=== PATIENT | male | born 1990 | race Caucasian/White ===

== ENCOUNTER → 2016-10-18 | Outpatient (CLI) | payer BC | LOC: RAD 08:55 | DX: M25.511 Pain in right shoulder (principal); W10.9XXA Fall (on) (from) unspecified stairs and steps, initial encounter ==

== ENCOUNTER 2016-11-06 11:00 | Outpatient (RCR) | payer BC | END 2017-01-23 | disposition home or self-care (01) | LOC: PT | DX: M75.21 Bicipital tendinitis, right shoulder (principal) ==

== ENCOUNTER → 2017-04-05 | Outpatient (CLI) | payer BC ==
[2017-04-05 07:41] LABS: EOS # 0.5 (0.04-0.40); EOS % 4.9 % (0.0-4.0); HEMATOCRIT 42.4 % (42.0-52.0); HEMOGLOBIN 13.9 g/dL (13.5-18.0); LYMPH# 2.3 (1.50-4.00); MEAN CELL VOLUME 84 fl (78-100); MEAN CORPUSCULAR HEMOGLOBIN 28 pg (27-31); MEAN CORPUSCULAR HGB CONC 33 g/dL (33-37); MEAN PLATELET VOLUME 9.6 fl (7.4-10.4); MONO # 0.9 (0.20-0.80); NEU # 7.1 (1.40-6.50); PLATELET COUNT 389 K/mm3 (130-400); RED BLOOD COUNT 5.04 M/mm3 (4.20-5.60); RED CELL DISTRIBUTION WIDTH 14.1 % (11.5-14.5); WHITE BLOOD COUNT 10.9 K/mm3 (4.8-10.8)
[2017-04-05 07:44] LABS: BUN/CREATININE RATIO 18.3 (6.0-26.0); CALCIUM 9.2 mg/dL (8.4-10.2); POTASSIUM 4.2 mmol/L (3.6-5.0); TOTAL BILIRUBIN 0.6 mg/dL (0.2-1.3); TOTAL PROTEIN 7.3 g/dL (6.3-8.2)
== END ==
LOC: LAB 07:18
PROVIDERS: Nurse Practitioner Family
DX: R53.81 Other malaise (principal); R06.83 Snoring; I10 Essential (primary) hypertension

== ENCOUNTER → 2017-04-25 | Outpatient (CLI) | payer BC | LOC: LAB 07:02 | DX: R53.81 Other malaise (principal); E66.01 Morbid (severe) obesity due to excess calories; R06.83 Snoring; I10 Essential (primary) hypertension ==

== ENCOUNTER → 2017-05-11 | Outpatient (CLI) | payer BC | LOC: LAB 07:24 | DX: R53.81 Other malaise (principal); E66.01 Morbid (severe) obesity due to excess calories; R06.83 Snoring; I10 Essential (primary) hypertension ==

== ENCOUNTER → 2017-05-15 | Outpatient (CLI) | payer BC ==
[2017-05-15 23:41] LABS: FOLLICLE STIMULATING HORMONE 1.9 mIU/mL (1.0-12.0); LUTENIZING HORMONE 1.8 mIU/mL (0.6-12.1)
== END ==
LOC: LAB 12:34
PROVIDERS: Nurse Practitioner Family
DX: E29.1 Testicular hypofunction (principal)

== ENCOUNTER → 2017-05-17 | Outpatient (CLI) | payer BC | LOC: LAB 09:48 | DX: E29.1 Testicular hypofunction (principal) ==

== ENCOUNTER → 2017-07-05 | Outpatient (CLI) | payer BC | LOC: LAB 13:03 | DX: E29.1 Testicular hypofunction (principal) ==

== ENCOUNTER → 2017-07-10 | Outpatient (CLI) | payer BC | LOC: LAB 07:13 | DX: E29.1 Testicular hypofunction (principal) ==

== ENCOUNTER 2018-09-17 06:49 | Emergency (ER) | payer BC ==
[~2018-09-17] VITALS: Ht 180.3 cm; Wt 179.5 kg
[2018-09-17] MEDS ORDERED: LISINOPRIL AND1 TA1 PO (07:04)
[2018-09-17 07:38] LABS: HEMATOCRIT 42.5 % (42.0-52.0); HEMOGLOBIN 13.7 g/dL (13.5-18.0); LYMPH# 1.9 (1.50-4.00); MEAN CELL VOLUME 85 fl (78-100); MEAN CORPUSCULAR HEMOGLOBIN 27 pg (27-31); MEAN CORPUSCULAR HGB CONC 32 g/dL (33-37); MEAN PLATELET VOLUME 9.2 fl (7.4-10.4); MONO # 0.7 (0.20-0.80); NEU # 6.2 (1.40-6.50); PLATELET COUNT 349 K/mm3 (130-400); RED BLOOD COUNT 5.02 M/mm3 (4.20-5.60); WHITE BLOOD COUNT 9.6 K/mm3 (4.8-10.8)
[2018-09-17 07:45] LABS: EOS # 0.7 (0.04-0.40); EOS % 7.6 % (0.0-4.0)
[2018-09-17 08:01] LABS: D-DIMER 0.27 mg/L FEU (0.15-0.50)
[2018-09-17 08:09] LABS: ALBUMIN 3.7 g/dL (3.5-5.0); ALT/SGPT 30 U/L (0-55); AST-SGOT 22 U/L (5-34); CALCIUM 9.2 mg/dL (8.3-10.5); CARBON DIOXIDE 27 mmol/L (22-29); GLUCOSE 112 mg/dL (75-110); SODIUM 138 mmol/L (136-145); TOTAL BILIRUBIN 0.4 mg/dL (0.2-1.2); TOTAL PROTEIN 6.7 g/dL (6.4-8.3)
[2018-09-17 08:14] LABS: TROPONIN-I < 0.03 ng/mL (<0.030)
[2018-09-17 09:03] VITALS: BP 151/79
== END 2018-09-17 09:05 | disposition home or self-care (01) ==
LOC: ED 06:49
PROVIDERS: Nurse Practitioner Primary Care
DX: R07.89 Other chest pain (principal); I10 Essential (primary) hypertension; K21.9 Gastro-esophageal reflux disease without esophagitis; E66.9 Obesity, unspecified

== ENCOUNTER → 2019-11-26 | Outpatient (CLI) | payer BC ==
[~2019-11-26] MED LIST: LISINOPRIL AND1 TA1 PO
== END ==
LOC: RAD 07:48
DX: I86.1 Scrotal varices (principal)

== ENCOUNTER → 2020-01-29 | Outpatient (CLI) | payer BC ==
[2020-01-29 08:17] LABS: EOS # 0.5 (0.04-0.40); HEMATOCRIT 45.5 % (42.0-52.0); HEMOGLOBIN 14.5 g/dL (13.5-18.0); LYMPH# 2.2 (1.50-4.00); MEAN CELL VOLUME 84 fl (78-100); MEAN CORPUSCULAR HEMOGLOBIN 27 pg (27-31); MEAN CORPUSCULAR HGB CONC 32 g/dL (33-37); MEAN PLATELET VOLUME 9.5 fl (7.4-10.4); MONO # 0.6 (0.20-0.80); NEU # 5.5 (1.40-6.50); PLATELET COUNT 373 K/mm3 (130-400); RED BLOOD COUNT 5.44 M/mm3 (4.20-5.60); RED CELL DISTRIBUTION WIDTH 13.7 % (11.5-14.5); WHITE BLOOD COUNT 8.7 K/mm3 (4.8-10.8)
[2020-01-29 08:30] LABS: POTASSIUM 4.5 mmol/L (3.5-5.1)
[2020-01-29 08:31] LABS: ALBUMIN 4.1 g/dL (3.5-5.0)
[2020-01-29 08:32] LABS: CALCIUM 9.4 mg/dL (8.3-10.5)
[2020-01-29 08:35] LABS: TOTAL BILIRUBIN 0.5 mg/dL (0.2-1.2)
[2020-01-29 08:51] LABS: EOS % 5.2 % (0.0-4.0)
== END ==
LOC: LAB 08:00
PROVIDERS: Physician Assistant
DX: J30.2 Other seasonal allergic rhinitis (principal); K21.9 Gastro-esophageal reflux disease without esophagitis; I10 Essential (primary) hypertension; M79.642 Pain in left hand; E29.1 Testicular hypofunction; R73.9 Hyperglycemia, unspecified; R45.4 Irritability and anger; R51.9 Headache, unspecified; Z83.3 Family history of diabetes mellitus

== ENCOUNTER → 2020-10-25 | Outpatient (CLI) | payer BC | LOC: LAB 18:03 | DX: U07.1 COVID-19 (principal) ==

== ENCOUNTER → 2021-03-19 | Outpatient (CLI) | payer BC | LOC: LAB 16:58 | DX: Z20.822 Contact with and (suspected) exposure to COVID-19 (principal) ==

== ENCOUNTER 2021-03-30 18:38 | Emergency (ER) | payer BC ==
[2021-03-30] MEDS ORDERED: LYMEPAK100 MG PO (18:49)
[2021-03-30] MEDS ORDERED: GLUCOPHAGE PO (18:50)
[2021-03-30] MEDS ORDERED: FLUTICASON0.05 MG/AC NS (18:50)
[2021-03-30] MEDS ORDERED: ESCITALOPRAM5 MG PO (18:50)
[2021-03-30 20:46] LABS: BASO # 0.03 K/mm3 (0.02-0.10); EOS # 0.37 K/mm3 (0.04-0.40); EOS % 3.8 % (0.0-4.0); HEMATOCRIT 47.5 % (42.0-52.0); HEMOGLOBIN 15.4 g/dL (13.5-18.0); LYMPH# 3.24 K/mm3 (1.50-4.00); MEAN CELL VOLUME 85 fl (78-100); MEAN CORPUSCULAR HEMOGLOBIN 28 pg (27-31); MEAN CORPUSCULAR HGB CONC 32 g/dL (33-37); MONO # 0.71 K/mm3 (0.20-0.80); NEU # 5.48 K/mm3 (1.40-6.50); PLATELET COUNT 370 K/mm3 (130-400); RED CELL DISTRIBUTION WIDTH 13.4 % (11.5-14.5); WHITE BLOOD COUNT 9.8 K/mm3 (4.8-10.8)
[2021-03-30 20:59] LABS: ALBUMIN 4.3 g/dL (3.5-5.0); POTASSIUM 4.2 mmol/L (3.5-5.1)
[2021-03-30 21:00] LABS: CALCIUM 9.8 mg/dL (8.3-10.5)
[2021-03-30 21:02] LABS: TOTAL PROTEIN 8.4 g/dL (6.4-8.3)
[2021-03-30 21:03] LABS: TOTAL BILIRUBIN 0.2 mg/dL (0.2-1.2)
[2021-03-30] MEDS ORDERED: ALBUTEROL2.5 MG/3 M IH (21:18)
[2021-03-30] MEDS ORDERED: CEFDINIR300 MG PO (21:18)
[2021-03-30 21:30] VITALS: BP 156/78
== END 2021-03-30 21:30 | disposition home or self-care (01) ==
LOC: ED 18:38
PROVIDERS: Physician Assistant
DX: J40 Bronchitis, not specified as acute or chronic (principal); H66.92 Otitis media, unspecified, left ear; I10 Essential (primary) hypertension; E11.9 Type 2 diabetes mellitus without complications; F32.A Depression, unspecified; Z20.822 Contact with and (suspected) exposure to COVID-19; Z79.84 Long term (current) use of oral hypoglycemic drugs; Z79.899 Other long term (current) drug therapy

== ENCOUNTER → 2021-07-20 | Outpatient (CLI) | payer BC ==
[~2021-07-20] MED LIST changes: +ALBUTEROL2.5 MG/3 M IH; +CEFDINIR300 MG PO; +ESCITALOPRAM5 MG PO; +FLUTICASON0.05 MG/AC NS; +GLUCOPHAGE PO; +LYMEPAK100 MG PO
[2021-07-20 07:55] LABS: BASO # 0.03 K/mm3 (0.02-0.10); HEMATOCRIT 43.1 % (42.0-52.0); HEMOGLOBIN 13.9 g/dL (13.5-18.0); LYMPH# 1.95 K/mm3 (1.50-4.00); MEAN CELL VOLUME 85 fl (78-100); MEAN CORPUSCULAR HEMOGLOBIN 27 pg (27-31); MEAN CORPUSCULAR HGB CONC 32 g/dL (33-37); MEAN PLATELET VOLUME 9.2 fl (7.4-10.4); MONO # 0.64 K/mm3 (0.20-0.80); NEU # 6.23 K/mm3 (1.40-6.50); PLATELET COUNT 343 K/mm3 (130-400); RED BLOOD COUNT 5.08 M/mm3 (4.20-5.60); RED CELL DISTRIBUTION WIDTH 13.5 % (11.5-14.5)
[2021-07-20 08:09] LABS: POTASSIUM 4.2 mmol/L (3.5-5.1)
[2021-07-20 08:10] LABS: CALCIUM 9.8 mg/dL (8.3-10.5)
[2021-07-20 08:12] LABS: TOTAL PROTEIN 7.4 g/dL (6.4-8.3)
[2021-07-20 08:14] LABS: TOTAL BILIRUBIN 0.3 mg/dL (0.2-1.2)
== END ==
LOC: LAB 07:38
PROVIDERS: Physician Assistant
DX: Z00.00 Encounter for general adult medical examination without abnormal findings (principal); Z13.1 Encounter for screening for diabetes mellitus; Z13.29 Encounter for screening for other suspected endocrine disorder; K90.9 Intestinal malabsorption, unspecified

== ENCOUNTER → 2022-01-25 | Outpatient (CLI) | payer BC ==
[2022-01-25 08:01] LABS: HEMOGLOBIN 14.4 g/dL (13.5-18.0); MEAN PLATELET VOLUME 9.3 fl (7.4-10.4); RED BLOOD COUNT 5.24 M/mm3 (4.20-5.60); RED CELL DISTRIBUTION WIDTH 13.5 % (11.5-14.5); WHITE BLOOD COUNT 7.9 K/mm3 (4.8-10.8)
[2022-01-25 08:12] LABS: ALBUMIN 4.3 g/dL (3.5-5.0)
[2022-01-25 08:13] LABS: POTASSIUM 4.3 mmol/L (3.5-5.1)
[2022-01-25 08:14] LABS: CALCIUM 9.5 mg/dL (8.3-10.5)
[2022-01-25 08:15] LABS: TOTAL PROTEIN 7.6 g/dL (6.4-8.3)
[2022-01-25 08:17] LABS: TOTAL BILIRUBIN 0.4 mg/dL (0.2-1.2)
== END ==
LOC: LAB 07:41
PROVIDERS: Physician Assistant
DX: L91.8 Other hypertrophic disorders of the skin (principal); K90.9 Intestinal malabsorption, unspecified; R73.9 Hyperglycemia, unspecified; I10 Essential (primary) hypertension; E66.01 Morbid (severe) obesity due to excess calories; Z51.81 Encounter for therapeutic drug level monitoring; Z13.29 Encounter for screening for other suspected endocrine disorder; R53.83 Other fatigue; R06.00 Dyspnea, unspecified

== ENCOUNTER → 2024-03-05 | Outpatient (CLI) | payer BC | LOC: RAD 09:36 | DX: M17.11 Unilateral primary osteoarthritis, right knee (principal); M25.562 Pain in left knee; Z98.890 Other specified postprocedural states ==

== ENCOUNTER → 2024-03-11 | Outpatient (CLI) | payer BC | LOC: RAD 09:48 | DX: M71.22 Synovial cyst of popliteal space [Baker], left knee (principal) ==